=== PATIENT | female | born 1980 | race Caucasian/White ===

== ENCOUNTER → 2017-06-02 15:10 | Outpatient (CLI) | payer MEDICAID, SELFPAY ==
--- NOTE | 2017-06-02 15:14 | RAD_ITS ---
STUDY: X-RAY - RIGHT KNEE REASON FOR EXAM: Twisting ski accident 4 days ago. TECHNIQUE: 4 view(s) of the knee. COMPARISON: None. FINDINGS: Normal visualized distal femur. Normal visualized proximal tibia and fibula. Normal proximal tibiofibular articulation. Normal medial femorotibial compartment. Normal lateral femorotibial compartment. Normal patellofemoral articulation. There is a small joint effusion. RAD/Knee 4 or More Views IMPRESSION: Small joint effusion. Otherwise, unremarkable x-ray examination of the right knee. Electronically Signed: Angelo Mclean MD at 15:40 EST Tel , Service support ,
== END ==
PROVIDERS: Visit Provider Orthopaedic Surgery
DX: M25.561 Pain in right knee (principal); M25.461 Effusion, right knee
CPT/HCPCS: 73564

== ENCOUNTER → 2017-06-02 16:13 | Outpatient (CLI) | payer MEDICAID, SELFPAY ==
--- NOTE | 2017-06-02 16:15 | VDLE_ITS ---
Reason For Study: PAIN RIGHT GSV is normal. CFV is compressible, spontaneous, phasic, competent and demonstrates normal augmentation. FV is compressible, spontaneous, phasic, competent and demonstrates normal augmentation. POP V is compressible, spontaneous, phasic, competent and demonstrates normal augmentation. T/P Trunk is compressible. PTV is compressible. RT PerV is compressible. Procedure Exam performed in department. A preliminary report was called and/or faxed to DR JAVIER. Interpretation Summary Deep veins of the right lower extremity are patent and compressible segmentally. There is no evidence of right lower extremity deep vein thrombosis. Valvular competence appears intact within the proximal deep venous system on the right . The right greater saphenous vein appears patent and compressible segmentally. Ordering Physician: Nikolay Javier Referring Physician: JOHN GRIMES Performed By: Tania Fernandez, ADRIAN, RVT
== END ==
PROVIDERS: Family Provider Student in an Organized Health Care Education/Training Program; PCP Student in an Organized Health Care Education/Training Program; Visit Provider Orthopaedic Surgery
DX: M25.561 Pain in right knee (principal); M25.461 Effusion, right knee
CPT/HCPCS: 73564; 93971

== ENCOUNTER → 2017-06-13 12:34 | Outpatient (CLI) | payer MEDICAID, SELFPAY ==
--- NOTE | 2017-06-13 12:35 | MRI_ITS ---
STUDY: MRI RIGHT KNEE REASON FOR EXAM: Female, 36 years old. Right ACL tear while skiing 2 weeks ago. TECHNIQUE: Standardized fat and water weighted pulse sequences were obtained in all 3 orthogonal planes. COMPARISON: X-ray June 02, 2017 FINDINGS: Normal medial meniscus. Normal hyaline cartilage of the medial femorotibial compartment. Normal medial femoral condyle and tibial plateau. Normal medial collateral ligamentous complex (MCL). Normal distal semimembranosus, gracilis and semitendinosus tendons. Normal lateral meniscus. Normal hyaline cartilage of the lateral femorotibial compartment. Normal lateral femoral condyle. There is bone marrow edema of the posterior lateral tibia consistent with bony contusion. Normal proximal tibiofibular articulation. Normal lateral collateral (fibular) ligament. Normal popliteus tendon. Normal biceps femoris tendon. There is a high-grade partial or complete tear of the anterior cruciate ligament. Normal posterior cruciate ligament (PCL). Normal congruent patellofemoral articulation. Normal hyaline cartilage of the patellofemoral compartment. Normal medial and lateral patellar retinaculum. Normal quadriceps tendon. Normal patellar tendon. Normal Hoffa's fat pad. There is a moderate joint effusion. There is diffuse soft tissue edema. MRI/Lower Ext Joint Only (Routine) IMPRESSION: There is a high-grade partial or complete tear of the anterior cruciate ligament. There is a lateral tibial bony contusion. There is a moderate joint effusion. Electronically Signed: Mikki Benitez MD at 14:08 EST , Service support ,
== END ==
PROVIDERS: Family Provider Student in an Organized Health Care Education/Training Program; PCP Student in an Organized Health Care Education/Training Program; Visit Provider Orthopaedic Surgery
DX: S83.511A Sprain of anterior cruciate ligament of right knee, initial encounter (principal); S80.11XA Contusion of right lower leg, initial encounter; X58.XXXA Exposure to other specified factors, initial encounter
CPT/HCPCS: 73721

== ENCOUNTER 2017-07-03 17:30 | Outpatient (RCR) | payer MEDICAID, SELFPAY ==
--- NOTE | 2017-06-04 12:49 | HP.PTEVAL_ITS ---
Patient's Visit Information Olivia Rosario is a 36 year old F referred to Physical Therapy by DO VEL Barclay with a diagnosis of RIGHT ACL TEAR. Date of Evaluation: 06/04/17 Physical Therapist: Hema Ring PT, - Visit Plan Frequency: 1-2x /Week Duration: 6 Weeks Plan: Patient appears to have tear ACL,thus waiting for MRI .. Intially, patient start with ROM,EDEMA ,VASO,ESTIM,US,CP. GAIT TRAINING - Subjective Subjective: This 36 y/o female presents to physical therapy with right ACL tear.Pateint injuried right knee 05/30/17 sking twisted knee . Patient went ER did x-rays -. Return to [place] seen DR Javier suspects ACL tear ,did x-rays . Patient uses rollator for gait. Patient unbal to squat ,kneel,stairs which patient scoots up on buttuck. Pain in knee affects ability to perform ADL'S and housework tasks. Patient has difficulty sleeping at night . Pain affects affects quality of live. 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 EDEMA: joint line 50 cm ,effusion. PALAPTION: medial/knee tender. GAIT: ambulates with fww decrease stance ,swing phase ..uses rollator at home. BALANCE: good with fww. AROM: 20 -120 supine knee flexion. MMT: quads/hams 3+/5,hip abd 3+/5,hip flexion 4-/5 ankle 4/5. STAIRS:one step at a time with 2 rails - Special Tests R Knee Trixie - Meniscus: Positive R Knee Christopher - ACL: Positive R Knee Anterior Drawer - ACL: Positive R Knee Posterior Drawer - PCL: Negative - Goals Goal 1:: Patient to be Independant with HEP Goal Time Frame: 4-6 Weeks Goal 2:: Patient increase ROM knee 5-120 degrees supine to improve function Goal Time Frame: 4-6 Weeks Goal 3:: Patient to decrease edema knee by 2-5 cm Goal Time Frame: 4-6 Weeks Goal 4:: Patient yo ambulate with least restrictive device community distances Goal Time Frame: 4-6 Weeks - Rehabilitation Potential Physical Therapy Diagnosis: Patient has right ACL tear + lachmans along with pain edema,decrease ROM ,strength,gait and balance thus benifit from MRI, benifit from PT to decrease edema,and increase ROM Rehabilitation Potential: Good - Anticipated Interventions Patient/Client Instruction: Educate patient on: Condition, Plan of Care For the Purpose of:: To decrease pain, To increase ROM, To improve nutrient delivery to tissue, To increase oxygenation perfusion, To improve muscle performance and motor function, To improve ability to perform ADL's, To increase tolerance to activity/condition/position, To improve gait and locomotor functions, To improve health of tissue, To decrease soft tissue restriction, To increase flexibility/ROM, To improve ability to perform tasks related to life management Therapeutic Exercise to Include: Strength training, Flexibilty training, Passive ROM, Active ROM Comment: QUADS/HAMS/HIP For the Purpose of:: To decrease pain, To increase ROM, To improve muscle performance and motor function, To increase tolerance to activity/condition/ position, To improve performance and independence with ADL's, To improve ability of physical actions for home/community/work/leisure, To improve health of tissue, To decrease soft tissue restriction, To increase flexibility/ROM, To improve ability to perform tasks related to life management IF ES: Yes Cryotherapy (ice pack, ice massage): Yes Thermo therapy (hot pack): Yes Ultrasound (thermal/non thermal): Yes For the Purpose of:: To decrease pain, To increase ROM, To improve nutrient delivery to tissue, To increase oxygenation perfusion, To improve health of tissue, To decrease soft tissue restriction, To improve ability to perform tasks related to life management Thank you for the opportunity to evaluate your patient. For Medicare and Medicare HMO plans, please review the plan of care and approve it. It will need to be FAXED BACK to us at [phone] for Medicare purposes. Please let me know if there are questions or concerns regarding this plan of care. Physician Signature: Date:
--- NOTE | 2017-07-03 18:00 | HP.PTDCSUM_ITS ---
HP - PT D/C Summary It has been my pleasure to treat FADI LOTT under orders from Nikolay Javier DO, for the diagnosis of RIGHT ACL TEAR for a total of 7 visit(s). Discharge Date: Please see the following information for a summary of their discharge status. - Subjective Subjective: Doing much better...ready for surgery - Pain Right Knee Pain Intensity (Out of 10): 0 - Overall Improvement % Improvement: 70 - Objective Objective/Function: POSTURE: knee slightly flexed. GAIT: ambulates with slight knee flexed ,stance time and swing phase during gait. AROM: 5-110 degrees. MMT : quads4-/5,hip 4/5,hams 4/5 - Goals Goal 1:: Patient to be Independant with HEP Goal Progress: Goal Met Goal 2:: Patient increase ROM knee 5-120 degrees supine to improve function Goal Progress: Progressing Goal 3:: Patient to decrease edema knee by 2-5 cm Goal Progress: Goal Met Goal 4:: Patient yo ambulate with least restrictive device community distances Goal Progress: Goal Met - Plan Plan: D/C to for ACL surgery - D/C Information If there are questions or concerns regarding this patient's physical therapy, please feel free to call me at [phone]. Thank you for the referral of this patient. Sincerely, Hema Ring PT,
== END 2017-07-03 19:00 | disposition home or self-care (01) ==
LOC: PT 17:30
PROVIDERS: Family Provider Student in an Organized Health Care Education/Training Program; PCP Student in an Organized Health Care Education/Training Program; Visit Provider Orthopaedic Surgery
DX: S83.511D Sprain of anterior cruciate ligament of right knee, subsequent encounter (principal)
CPT/HCPCS: 97014; 97110; 97161; G0283

== ENCOUNTER 2017-07-08 11:53 | Day surgery (SDC) | payer MEDICAID, SELFPAY ==
[2017-07-08 12:29] VITALS: BP 131/68; PULSE 76; RESP 18; TEMP 36.6; O2SAT 100; BMI 43.5
[2017-07-08 12:32] LABS: Internal QC Validated? YES +Cl - CLEAR BKGD; Pregnancy, Urine Negative Negative
--- NOTE | 2017-07-08 13:41 | PCM.DC.ORTHO ---
Discharge Activity: Return to Normal Activity, May not drive while taking narcotic pain medications., May Shower May shower in (days): 2 May resume sexual activity in: 6 weeks Ice area for (Minutes): 20 - Use Polar Care as needed Weight Bearing Status: Partial weight bearing Keep extremity elevated above heart level: Right Leg Additional Activity Instructions:: May perform straight leg raise and quad sets in brace. Then need to 90? 3 times per day. Brace otherwise 24 7 except shower. Call your doctor if your incision/area has: Continuous Slow Oozing, Sudden Increased Bleeding, Increased Pain/ Swelling, Increased Redness, Foul Smelling Discharge, Swelling at the incision site Call your doctor if you observe: Fever of 101 or Higher, Coldness, Increased Pain, Numbness or Tingling, Change in Color, Inability to urinate, Inability to have a bowel movement, Using more than one pad per hour, Shortness of breath, Dizziness, Fainting spells, Swelling in the ankles, Chest pain, Prolonged hiccoughing, Increased palpitations (irregular heartbeat), Calf discomfort, Uncontrolled pain Suture Line Care: Avoid Pulling/Pushing, Avoid Pinching/Bending Change Dressing in (Days):: 2 Remove Dressing in (days):: 2 Cleanse incision/area with: Soap & Water Additional Dressing/Incision Instructions:: Remove dressing on . Do not submerge wound. Wash hands prior to touching wound. Replace dressing with Rayshawn wrap to keep swelling down. Allergies/Adverse Reactions: Allergies penicillin V Allergy (Verified 07/03/17 10:28) Hives Sulfa (Sulfonamide Antibiotics) Allergy (Verified 07/03/17 10:28) throat Medications to take at Discharge ibuprofen 200 mg tablet 200 mg PO PRN PRN 06/25/17 tramadol 50 mg tablet 50 mg PO ONCE 06/25/17 Norethindrone-E.estradiol-Iron [Blisovi 24 Fe Tablet] 1 each PO DAILY 07/03/17 Clindamycin [Cleocin] 300 mg PO BID #20 cap 07/08/17 Docusate Sodium [Colace] 100 mg PO BID PRN PRN #10 cap 07/08/17 Oxycodone HCl/Acetaminophen [Percocet 5/325] 1 - 2 tablet PO Q4H PRN PRN #60 tablet 07/08/17 proMETHazine tablet [Phenergan] 25 mg PO Q4H PRN PRN #10 tab 07/08/17 The following prescriptions were given: Oxycodone HCl/Acetaminophen [Percocet 5/325] 1 - 2 tablet PO Q4H PRN PRN #60 tablet PRN Reason: Pain proMETHazine tablet [Phenergan] 25 mg PO Q4H PRN PRN #10 tab PRN Reason: Nausea Docusate Sodium [Colace] 100 mg PO BID PRN PRN #10 cap PRN Reason: Constipation Clindamycin [Cleocin] 300 mg PO BID #20 cap Primary Care Physician: Josh Cameron DO [Primary Care Provider] - Please Follow Up With: Nikolay Javier DO When: call [facility] for appt for 2 weeks Proposed Discharge Date: 07/08/17
[2017-07-08] MEDS: Clindamycin 900 MG/50 ML BAG 75 MG IV (15:41)
--- NOTE | 2017-07-08 17:05 | PCM.IMDPSTOP ---
Immediate Post-Op Note Date of Procedure: 07/08/17 Primary Surgeon/Physician: Nikolay Javier DO commercial loan analyst: Inés Lopez Pre-Operative Diagnosis: Right knee ACL tear Post-Operative Diagnosis: Same as above Surgery/Procedure Performed:: Right knee ACL reconstruction with allograft-Intrafix. Description of Surgical Findings:: See dictation Estimated Blood Loss: 20 Specimen's removed: None Type of Anesthesia:: General ASA Class: ASA1 Normal Healthy Patient - Admit VTE Documentation VTE Present on Admission: No VTE Mechan Device Prophylaxis: SCD's, Knee High ARCHIE Hose VTE Pharm Prophylaxis ordered?: Yes
--- NOTE | 2017-07-08 17:07 | PCM.OPRPT ---
Report of Operation Date of Procedure: 07/08/17 Pre-Operative Diagnosis: Right knee ACL tear Post-Operative Diagnosis: Same as above Surgery/Procedure Performed:: Right knee ACL reconstruction with allograft-Intrafix. Description of Surgical Findings:: 37-year-old female who sustained a noncontact twisting injury while skiing roughly 2 months ago. Patient had an MRI that showed an ACL disruption but no meniscal pathology. Patient went through physical therapy and made a decision to proceed with ACL reconstruction secondary to continued pain and instability. Patient was subsequently consented for the aforementioned procedure. She is met in the holding area where the right lower extremity was marked and identified by the with surgeon. Patient was taken the operating room in satisfactory condition with somewhat to place to identify patient operative procedure and limb. Patient received 900 clindamycin due to penicillin allergy. She had a well-placed tourniquet to the right proximal thigh. She was then prepped and draped in usual fashion. A 10 mm posterior tibialis allograft with subsequent repair in the back table under sterile conditions and placed in longitudinal traction prior to operative intervention. It measured roughly 10 mm on the femur and 10 mm on the tibia. It was subsequent allowed to continue to moisten again placed on 20 pounds of traction until pulled for insertion. The right lower extremity was elevated Esmarch used for exsanguination and tourniquet was increased to 250 mmHg for roughly 45 minutes. Anterolateral portal was established and we entered in the suprasellar pouch. She had no return of an effusion. Superior lateral outflow portal was established. Diagnostic scope should the patient's patellofemoral joint to be pristine. She had a loose bodies to the posterior lateral corner and the popliteal hiatus was normal. We then moved in the medial compartment. We established anteromedial portal. Anteromedial portal show the medial compartment to be pristine with no meniscal pathology or chondral injury. Central compartment showed an ACL disruption essentially within the mid segment. She had a high-grade partial tear occupying roughly 90% of the ACL diameter. The posterior cruciate ligament was otherwise normal and well synovialized. Patient had a narrow notch. The leg was then placed into figure 4 and lateral compartment evaluated. She had no chondral injury. There was no significant sulcus injury. The menisci was pristine. Popliteal hiatus was normal. At that point time using mechanical shaver and vapor cautery the ACL remnant from the notch was removed to identify the [id number] position. The tibial insertion was maintained to allow for improved graft incorporation. We subsequent performed a notchplasty to allow for better visualization secondary to the patient's narrow notch. We separately introduced a 7 mm femoral offset guide through the a.m. portal. Hyperflexed the knee and passed our guidewire within the anatomic footprint of the ACL. We subsequently used a low-profile reamer 10.5 mm reamer in anticipation of using the femoral Intrafix from [facility]. Excess debris was removed. We maintained roughly 2 mm of back wall. Passing suture was placed. Then turned our attention to the tibia. Tibial guide was set at 50. It was placement and then the tibial anatomic footprint located directly across the anterior horn lateral meniscus and on the downslope of the medial tibial eminence. Guidewire was passed and 10 mm reamer used to create our tunnel. Posterior aspect was chamfered. Passing suture was then brought down through the tibia and the graft brought from the back table. It was then pulled into the femoral socket using standard technique. We simply dilated accordingly and then seated using the Intrafix system using standard technique. The leg was then gently cycled to remove any excess cramp and we showed no signs of any roof impingement. At that point time with the leg in about 5? of knee flexion a guidewire was passed between the anterior and posterior bundles of our graft and subsequent fix using standard technique again using the tibia Intrafix system. Upon completion the patient had trace Lockman. No signs of roof impingement. Her wounds were then copiously irrigated. The tibial incision site was closed with 2-0 Vicryl and then running subicular Monocryl. Portal sites were closed with 3-0 nylon using simple suture technique. She was then dressed in usual fashion with Xeroform 4 x 4's collection Kerlix ABDs and Rasyhawn wrap. Hinged knee brace was placed locked in extension. I was scrubbed and available time during our procedure. We had no drains or complications. Implants included again the femoral and tibia Intrafix from [facility]. Patient will follow the ACL protocol from [facility]. Any major issues please contact me. mortar mixer: Inés Lopez Type of Anesthesia:: General Specimen's removed: None Estimated Blood Loss (mL): 20 Grafts/Implants Used: Intrafix from [facility] - Complications None - Admit VTE Documentation VTE Present on Admission: No VTE Mechan Device Prophylaxis: SCD's, Knee High ARCHIE Hose VTE Pharm Prophylaxis ordered?: Yes
[2017-07-08 17:10] VITALS: BP 131/68; BP 139/89; PULSE 93; RESP 18; TEMP 36.4; O2SAT 98
--- NOTE | 2017-07-08 17:13 | OP.PCM_ITS ---
Report of Operation Date of Procedure: 07/08/17 Pre-Operative Diagnosis: Right knee ACL tear Post-Operative Diagnosis: Same as above Surgery/Procedure Performed:: Right knee ACL reconstruction with allograft- Intrafix. Description of Surgical Findings:: 37-year-old female who sustained a noncontact twisting injury while skiing roughly 2 months ago. Patient had an MRI that showed an ACL disruption but no meniscal pathology. Patient went through physical therapy and made a decision to proceed with ACL reconstruction secondary to continued pain and instability. Patient was subsequently consented for the aforementioned procedure. She is met in the holding area where the right lower extremity was marked and identified by the with surgeon. Patient was taken the operating room in satisfactory condition with somewhat to place to identify patient operative procedure and limb. Patient received 900 clindamycin due to penicillin allergy. She had a well-placed tourniquet to the right proximal thigh. She was then prepped and draped in usual fashion. A 10 mm posterior tibialis allograft with subsequent repair in the back table under sterile conditions and placed in longitudinal traction prior to operative intervention. It measured roughly 10 mm on the femur and 10 mm on the tibia. It was subsequent allowed to continue to moisten again placed on 20 pounds of traction until pulled for insertion. The right lower extremity was elevated Esmarch used for exsanguination and tourniquet was increased to 250 mmHg for roughly 45 minutes. Anterolateral portal was established and we entered in the suprasellar pouch. She had no return of an effusion. Superior lateral outflow portal was established. Diagnostic scope should the patient's patellofemoral joint to be pristine. She had a loose bodies to the posterior lateral corner and the popliteal hiatus was normal. We then moved in the medial compartment. We established anteromedial portal. Anteromedial portal show the medial compartment to be pristine with no meniscal pathology or chondral injury. Central compartment showed an ACL disruption essentially within the mid segment. She had a high-grade partial tear occupying roughly 90% of the ACL diameter. The posterior cruciate ligament was otherwise normal and well synovialized. Patient had a narrow notch. The leg was then placed into figure 4 and lateral compartment evaluated. She had no chondral injury. There was no significant sulcus injury. The menisci was pristine. Popliteal hiatus was normal. At that point time using mechanical shaver and vapor cautery the ACL remnant from the notch was removed to identify the [id number] position. The tibial insertion was maintained to allow for improved graft incorporation. We subsequent performed a notchplasty to allow for better visualization secondary to the patient's narrow notch. We separately introduced a 7 mm femoral offset guide through the a.m. portal. Hyperflexed the knee and passed our guidewire within the anatomic footprint of the ACL. We subsequently used a low-profile reamer 10.5 mm reamer in anticipation of using the femoral Intrafix from [facility]. Excess debris was removed. We maintained roughly 2 mm of back wall. Passing suture was placed. Then turned our attention to the tibia. Tibial guide was set at 50. It was placement and then the tibial anatomic footprint located directly across the anterior horn lateral meniscus and on the downslope of the medial tibial eminence. Guidewire was passed and 10 mm reamer used to create our tunnel. Posterior aspect was chamfered. Passing suture was then brought down through the tibia and the graft brought from the back table. It was then pulled into the femoral socket using standard technique. We simply dilated accordingly and then seated using the Intrafix system using standard technique. The leg was then gently cycled to remove any excess cramp and we showed no signs of any roof impingement. At that point time with the leg in about 5? of knee flexion a guidewire was passed between the anterior and posterior bundles of our graft and subsequent fix using standard technique again using the tibia Intrafix system. Upon completion the patient had trace Lockman. No signs of roof impingement. Her wounds were then copiously irrigated. The tibial incision site was closed with 2-0 Vicryl and then running subicular Monocryl. Portal sites were closed with 3-0 nylon using simple suture technique. She was then dressed in usual fashion with Xeroform 4 x 4's collection Kerlix ABDs and Rayshawn wrap. Hinged knee brace was placed locked in extension. I was scrubbed and available time during our procedure. We had no drains or complications. Implants included again the femoral and tibia Intrafix from [facility]. Patient will follow the ACL protocol from [facility]. Any major issues please contact me. 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
[2017-07-08 17:15] VITALS: BP 131/68; BP 160/76; PULSE 76; RESP 18; O2SAT 94
[2017-07-08] MEDS: Ketorolac 15 MG/ML Vial IV (17:18)
--- NOTE | 2017-07-08 17:28 | RAD_ITS ---
STUDY: X-RAY - RIGHT KNEE REASON FOR EXAM: Female, 37 years old. Postop TECHNIQUE: 2 view(s) of the knee. COMPARISON: None. FINDINGS: Interval ACL repair surgery since the previous study.. Subcutaneous soft tissue gas is noted within the distal half of the right thigh.. RAD/Knee 1 or 2 Views IMPRESSION: Postoperative changes of the knee. Electronically Signed: Js Barreto DO at 18:09 EDT Tel [phone], Service support ,
[2017-07-08 17:30] VITALS: BP 131/66; BP 131/68; PULSE 80; RESP 18; O2SAT 93
[2017-07-08 17:45] VITALS: BP 118/56; BP 131/68; PULSE 92; RESP 18; TEMP 36.4; O2SAT 94
[2017-07-08 19:27] VITALS: BP 131/68
== END 2017-07-08 19:25 | disposition home or self-care (01) ==
LOC: SDC 11:54 → AC 11:55
PROVIDERS: Anesthesiology; Family Provider Student in an Organized Health Care Education/Training Program; PCP Student in an Organized Health Care Education/Training Program; Visit Provider Orthopaedic Surgery
PROC: (CPT 29888; principal; 2017-07-08 13:50)
DX: S83.511A Sprain of anterior cruciate ligament of right knee, initial encounter (principal); X50.1XXA Overexertion from prolonged static or awkward postures, initial encounter; Y93.23 Activity, snow (alpine) (downhill) skiing, snowboarding, sledding, tobogganing and snow tubing; Y92.9 Unspecified place or not applicable; Z86.79 Personal history of other diseases of the circulatory system; Z87.891 Personal history of nicotine dependence
CPT/HCPCS: 29888; 64447; 73560; 81025; J7120; J2405

== ENCOUNTER → 2017-09-29 15:10 | Outpatient (CLI) | payer OTHER, SELFPAY ==
--- NOTE | 2017-09-29 15:13 | VDLE_ITS ---
Reason For Study: RLE PAIN RIGHT GSV is normal. CFV is compressible, spontaneous, phasic, competent and demonstrates normal augmentation. FV is compressible, spontaneous, phasic, competent and demonstrates normal augmentation. POP V is compressible, spontaneous, phasic, competent and demonstrates normal augmentation. T/P Trunk is compressible. PTV is compressible. RT PerV is compressible. Procedure Exam performed in department. The exam was diagnostic. A preliminary report was called and/or faxed to DR. JAVIER @ 3:32 PM @ [phone]. Interpretation Summary There is no evidence of right lower extremity deep vein thrombosis. Right greater saphenous vein appears patent and compressible segmentally. Ordering Physician: Nikolay Javier Referring Physician: Nikolay Javier Performed By: Marbella Andersen, RDCS, RVT
== END ==
PROVIDERS: Family Provider Student in an Organized Health Care Education/Training Program; PCP Student in an Organized Health Care Education/Training Program; Visit Provider Orthopaedic Surgery
DX: M79.661 Pain in right lower leg (principal)
CPT/HCPCS: 93971

== ENCOUNTER → 2017-10-16 11:47 | Outpatient (CLI) | payer OTHER, SELFPAY ==
[2017-10-20 10:23] LABS: H. PYLORI STOOL AG Negative (Negative)
== END ==
PROVIDERS: Family Provider Student in an Organized Health Care Education/Training Program; PCP Student in an Organized Health Care Education/Training Program; Visit Provider Nurse Practitioner Adult Health
DX: A04.8 Other specified bacterial intestinal infections (principal)

== ENCOUNTER → 2017-10-31 12:27 | Outpatient (CLI) | payer OTHER, SELFPAY | PROVIDERS: Family Provider Student in an Organized Health Care Education/Training Program; PCP Student in an Organized Health Care Education/Training Program; Visit Provider Student in an Organized Health Care Education/Training Program | DX: Z79.899 Other long term (current) drug therapy (principal) | CPT/HCPCS: 36415; 83036 ==

== ENCOUNTER 2017-11-10 13:00 | Outpatient (RCR) | payer MEDICAID, OTHER, SELFPAY ==
--- NOTE | 2017-07-31 11:33 | HP.PTEVAL ---
Patient's Visit Information FADI LOTT is a 37 year old F referred to Physical Therapy by Nikolay Javier DO with a diagnosis of Right ACL- July 08 2017. Date of Evaluation: 07/31/17 Physical Therapist: Ludivina Gibson - Visit Plan Frequency: 2x /Week Duration: 4 Weeks Plan: Follow ACL protocol- follow up when able to fully WB - Subjective Subjective: Patient reports that she tore ACL skiing- made a turn/cut and wasn't going superfast- and had a fall. [employer] in [facility] in [place]. Took her to the clinic- took x-rays the next day at ER-did not do anything for her. w/c on the way home then switched to a walker. Saw Dr. Javier when she got back- had an MRI done and saw torn ACL and you had surgery July 08, 2017. Has done quad sets, heel slides and 90 sitting for ROM at home. Was doing well with SLR and now she can't do it again. Saw Dr. Javier on the and he recommended PT. Goes back to him on . PWB until then. Does not work outside of her home- has kids 10 to 16 years old 5 kids. 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 Pain at its worst: 4/10 Agg: overdoing her exercises, being up on it for long periods of time. Stiffness Eases: elevate, ice and taking the brace off and moving it, medication. Best: 0/10. Pain is located in the incision and along the medial side of the knee. Radiates soreness in the hip and ankle- but the biggest concern is a cramp on fri/ and then had swelling/soreness/redness on the heel of her foot. Rested it and now its gone. Describes pain as dull/achy/sharp/shooting. Mostly dull and achy. Sleep: disturbed- normally a side and belly sleeper. Currently sleeping on her back. PMHx: none Meds: visolvi ( control). Daily life is busy but she wants to be able to get back to all her normal stuff- does not workout or go to the gym. - Objective Posture: FH, RS. Gait: PWB with rollater-TROM brace on the right LE locked in extn. Girth: Patella: 49.5 cm 6 below: 43.5 cm 6 above:65.5 cm. ROM: 0-70 degrees with pain and stiffness at end range flexion. Strength: quad set visible, SLR with light touch from therapist. Ankle: 5/5, Hip: 4/5 throughout Core: poor - Goals Goal 1:: Patient will be I with HEP Goal Time Frame: 4-6 Weeks Goal 2:: Patient will demo 0-125 degrees in the right knee Goal Time Frame: 4-6 Weeks Goal 3:: Patient will demo equal girth bilaterally 6 above patella Goal Time Frame: 4-6 Weeks Goal 4:: Patient will ambulate >300 feet normal gait pattern Goal Time Frame: 4-6 Weeks Goal 5:: Patient will asc/desc 8 stairs recip Goal Time Frame: 4-6 Weeks - Rehabilitation Potential Physical Therapy Diagnosis: Patient presents with hypomobility- she has decreased ROM, strength and muscular endurance s/p ACL surgical intervention leading to abnormal gait and decreased ADL's. Rehabilitation Potential: Good - Anticipated Interventions Patient/Client Instruction: Educate patient on: Benefits of Fitness Program For the Purpose of:: To improve ability to perform ADL's Therapeutic Exercise to Include: Strength training, Endurance training, Balance training, Agility training, Body mechanics, Postural training, Flexibilty training, Gait and locomotor training, Passive ROM, Active ROM, Dynamic Lumbar Stabilization, Scapular Strength/Stabilization For the Purpose of:: To improve muscle performance and motor function TENS: Yes Cryotherapy (ice pack, ice massage): Yes Thermo therapy (hot pack): Yes Ultrasound (thermal/non thermal): Yes For the Purpose of:: To decrease pain Thank you for the opportunity to evaluate your patient. For Medicare and Medicare HMO plans, please review the plan of care and approve it. It will need to be FAXED BACK to us at [phone] for Medicare purposes. Please let me know if there are questions or concerns regarding this plan of care. Physician Signature: Date:
--- NOTE | 2017-09-11 14:37 | HP.PTREVAL_ITS ---
Nikolay Javier, DO, It has been my pleasure to treat FADI LOTT over the last 9 visits for Right ACL- July 08 2017. Please see the progress note below for an update on the physical therapy plan of care! Subjective: Patient reports that now she has a peptic ulcer and can't take meds - she was put on an antibiotic which is wrecking her. She feels likes the knee is still swollen but she was able to get to 110 degrees with help last visit. Has added leash stretch at home to improve ROM. Just stopped using the crutch this week- she doesn't use it unless he is up at night. Patient feels that she is 50%. She is able to do a lot of stuff but she is not back to everything like ambulating normally and ROM. Goes back September 29, [address] Javier. Pain in the knee ranges from 0-6/10. But always has stiffness. Does not feel like its going to buckle. Objective/Function: Posture: FH, RS. Gait: antalgic-no AD and is FWB- she has decreased stance on right LE with poor heel/toe pattern Girth: 6 above:68 cm. ROM: 0-110 degrees with pain and stiffness at end range flexion. Strength : left flexion:59/61/59 right flexion: 51,51,49 Left extn: 96, 101, 94 Right extn: 60,64,63. Stairs: recip with 1 HR mild deviation with desc Plan Plan: Cont 2x a week for 4 weeks- Push ROM Goals Goal 1:: Patient will be I with HEP Goal Time Frame: 4-6 Weeks Goal Progress: Progressing Goal 2:: Patient will demo 0-125 degrees in the right knee Goal Time Frame: 4-6 Weeks Goal Progress: Progressing Goal 3:: Patient will demo equal girth bilaterally 6 above patella Goal Time Frame: 4-6 Weeks Goal Progress: Progressing Goal 4:: Patient will ambulate >300 feet normal gait pattern Goal Time Frame: 4-6 Weeks Goal Progress: Progressing Goal 5:: Patient will asc/desc 8 stairs recip Goal Time Frame: 4-6 Weeks Anticipated Interventions Patient/Client Instruction: Educate patient on: Benefits of Fitness Program For the Purpose of:: To improve ability to perform ADL's Therapeutic Exercise to Include: Strength training, Endurance training, Balance training, Agility training, Body mechanics, Postural training, Flexibilty training, Gait and locomotor training, Passive ROM, Active ROM, Dynamic Lumbar Stabilization, Scapular Strength/Stabilization For the Purpose of:: To improve muscle performance and motor function TENS: Yes Cryotherapy (ice pack, ice massage): Yes Thermo therapy (hot pack): Yes Ultrasound (thermal/non thermal): Yes For the Purpose of:: To decrease pain Please do not hesitate to contact me at [phone] by phone or Fax: if you have questions or concerns regarding this new plan of care! Sincerely, Ludivina Gibson
--- NOTE | 2017-10-09 15:22 | HP.PTREVAL_ITS ---
Nikolay Javier DO, It has been my pleasure to treat FADI LOTT over the last 13 visits for Right ACL- July 08 2017. Please see the progress note below for an update on the physical therapy plan of care! Subjective: Calf strain that happened a few weeks ago- had DVT test which was negative. Was told to wear ARCHIE hose and take a week of rest. Still feels the swelling is limiting her ROM. She had increased soreness and sporatic bruising at the incision site. Has been driving a lot in the past few days and its been stiff. Pain comes and goes. Would like to continue therapy but maybe do a 1x a week and do more on her own- bike, swimming, walking etc... Objective/Function: Posture: FH, RS. Gait: antalgic-no AD and is FWB- she has decreased stance on right LE with poor heel/toe pattern ROM: 0-110 degrees, Strength: Extn: 4+/5, flexion: 4+/5 Hip: 4+/5 Stairs: recip with 1 HR mild deviation with desc Plan Plan: Continue 1x a week Goals Goal 1:: Patient will be I with HEP Goal Time Frame: 4-6 Weeks Goal Progress: Progressing Goal 2:: Patient will demo 0-125 degrees in the right knee Goal Time Frame: 4-6 Weeks Goal Progress: Progressing Goal 3:: Patient will demo equal girth bilaterally 6 above patella Goal Time Frame: 4-6 Weeks Goal Progress: Progressing Goal 4:: Patient will ambulate >300 feet normal gait pattern Goal Time Frame: 4-6 Weeks Goal Progress: Progressing Goal 5:: Patient will asc/desc 8 stairs recip Goal Time Frame: 4-6 Weeks Anticipated Interventions Patient/Client Instruction: Educate patient on: Benefits of Fitness Program For the Purpose of:: To improve ability to perform ADL's Therapeutic Exercise to Include: Strength training, Endurance training, Balance training, Agility training, Body mechanics, Postural training, Flexibilty training, Gait and locomotor training, Passive ROM, Active ROM, Dynamic Lumbar Stabilization, Scapular Strength/Stabilization For the Purpose of:: To improve muscle performance and motor function TENS: Yes Cryotherapy (ice pack, ice massage): Yes Thermo therapy (hot pack): Yes Ultrasound (thermal/non thermal): Yes For the Purpose of:: To decrease pain Please do not hesitate to contact me at [phone] by phone or Fax: if you have questions or concerns regarding this new plan of care! Sincerely, Ludivina Gibson
--- NOTE | 2017-11-10 13:22 | HP.PTDCSUM_ITS ---
HP - PT D/C Summary It has been my pleasure to treat FADI LOTT under orders from Nikolay Javier DO, for the diagnosis of Right ACL- July 08 2017 for a total of 15 visit(s). Discharge Date: Please see the following information for a summary of their discharge status. - Subjective Subjective: Patient reports that she is better- in the last 2-3 weeks she felt like she is walking more normal but there is still times that she had some weird rubbing- still has clicking and popping with extension. She still has swelling callie by the end of the day. Has been working out a lot in the pool. - Pain Right knee Pain Intensity (Out of 10): 2 Right calf Pain Intensity (Out of 10): 0 - Overall Improvement % Improvement: 70 - Objective Objective/Function: Posture: FH, RS. Gait: slightly antalgic-no AD and is FWB- she has decreased stance on right LE with decreased heel/toe pattern ROM: 0- 110 degrees, Strength: Extn: 5/5, flexion: 5/5 Hip: 5/5 Stairs: recip with 1 HR mild deviation with desc - Goals Goal 1:: Patient will be I with HEP Goal Progress: Goal Met Goal 2:: Patient will demo 0-125 degrees in the right knee Goal Progress: Progressing Goal 3:: Patient will demo equal girth bilaterally 6 above patella Goal Progress: Progressing Goal 4:: Patient will ambulate >300 feet normal gait pattern Goal Progress: Progressing Goal 5:: Patient will asc/desc 8 stairs recip - Plan Plan: Discharge to I HEP. - D/C Information If there are questions or concerns regarding this patient's physical therapy, please feel free to call me at [phone]. Thank you for the referral of this patient. Sincerely, Ludivina Gibson
== END 2017-11-10 19:00 | disposition home or self-care (01) ==
LOC: PT 13:00
PROVIDERS: Family Provider Student in an Organized Health Care Education/Training Program; PCP Student in an Organized Health Care Education/Training Program; Visit Provider Orthopaedic Surgery
DX: Z98.890 Other specified postprocedural states (principal)
CPT/HCPCS: 97110; 97162; 97164; 97530

== ENCOUNTER → 2018-07-16 13:47 | Outpatient (CLI) | payer MEDICAID, SELFPAY ==
--- NOTE | 2018-07-16 13:48 | RAD_ITS ---
STUDY: X-RAY - RIGHT KNEE REASON FOR EXAM: Pain. TECHNIQUE: 4 view(s) of the knee. COMPARISON: Radiographs 07/08/2017 and 06/02/2017. FINDINGS: There are postoperative changes of the distal femur and proximal tibia from anterior cruciate ligament reconstruction. Normal proximal tibiofibular articulation. Normal medial femorotibial compartment. Normal lateral femorotibial compartment. There is interval development of joint space narrowing of the lateral aspect of the patellofemoral articulation. The soft tissue structures are unremarkable. RAD/Knee 4 or More Views IMPRESSION: Interval development of joint space of the patellofemoral articulation. Postoperative changes from anterior cruciate ligament reconstruction. Electronically Signed: Angelo Mclean MD at 15:07 EDT Tel , Service support ,
== END ==
PROVIDERS: Family Provider Student in an Organized Health Care Education/Training Program; PCP Student in an Organized Health Care Education/Training Program; Referring Provider Orthopaedic Surgery; Visit Provider Orthopaedic Surgery
DX: M25.561 Pain in right knee (principal)
CPT/HCPCS: 73564

== ENCOUNTER → 2018-11-04 10:56 | Outpatient (CLI) | payer MEDICAID, SELFPAY ==
--- NOTE | 2018-11-04 10:57 | MRI_ITS ---
STUDY: MRI RIGHT KNEE REASON FOR EXAM: Mechanical right knee pain, swelling, ACL repair in June 2017. TECHNIQUE: Standardized fat and water weighted pulse sequences were obtained in all 3 orthogonal planes. COMPARISON: MRI images 06/13/2017 and radiographs 07/16/2018. FINDINGS: Normal medial meniscus. Normal hyaline cartilage of the medial femorotibial compartment. Normal medial femoral condyle and tibial plateau. Normal medial collateral ligamentous complex (MCL). Normal distal semimembranosus, gracilis and semitendinosus tendons. Normal lateral meniscus. Normal hyaline cartilage of the lateral femorotibial compartment. Normal lateral femoral condyle and tibial plateau. Normal proximal tibiofibular articulation. Normal lateral collateral (fibular) ligament. Normal popliteus tendon. Normal biceps femoris tendon. The anterior cruciate ligament graft is intact (series 7 image 10). Normal posterior cruciate ligament (PCL). Normal congruent patellofemoral articulation. Normal hyaline cartilage of the patellofemoral compartment. Normal medial and lateral patellar retinaculum. Normal quadriceps tendon. Normal patellar tendon. There is postoperative scarring in Hoffa's fat pad. There is no joint effusion. There is a thin medial patellar plica. The soft tissues are unremarkable. There is postoperative changes of the distal femur and proximal tibia anterior cruciate ligament reconstruction. MRI/Lower Ext Joint Only (Routine) IMPRESSION: Intact anterior cruciate graft. No demonstrated meniscal tear. Electronically Signed: Angelo Mclean MD at 12:51 EDT Tel , Service support ,
== END ==
PROVIDERS: Family Provider Student in an Organized Health Care Education/Training Program; PCP Student in an Organized Health Care Education/Training Program; Referring Provider Orthopaedic Surgery; Visit Provider Orthopaedic Surgery
DX: M25.561 Pain in right knee (principal); M25.661 Stiffness of right knee, not elsewhere classified
CPT/HCPCS: 73721

== ENCOUNTER 2018-11-06 10:04 | Outpatient (RCR) | payer MEDICAID, SELFPAY | END 2018-11-11 23:59 | LOC: NS 10:04 | PROVIDERS: Family Provider Student in an Organized Health Care Education/Training Program; PCP Student in an Organized Health Care Education/Training Program; Visit Provider Student in an Organized Health Care Education/Training Program | DX: E66.01 Morbid (severe) obesity due to excess calories (principal); Z68.43 Body mass index [BMI] 50.0-59.9, adult; Z71.3 Dietary counseling and surveillance | CPT/HCPCS: 97802 ==

== ENCOUNTER → 2018-11-19 09:27 | Outpatient (CLI) | payer MEDICAID, SELFPAY ==
--- NOTE | 2018-11-19 09:29 | VDLE_ITS ---
Reason For Study: Swelling RIGHT GSV is normal. CFV is compressible, spontaneous, phasic, competent and demonstrates normal augmentation. FV is compressible, spontaneous, phasic, competent and demonstrates normal augmentation. POP V is compressible, spontaneous, phasic, competent and demonstrates normal augmentation. T/P Trunk is compressible. PTV is compressible. RT PerV is compressible. Procedure Exam performed in department. A preliminary report was called and/or faxed to [facility]. Interpretation Summary There is no evidence of right lower extremity deep vein thrombosis. Right great saphenous vein appears patent and compressible segmentally. Ordering Physician: Shari Craig Referring Physician: Josh Marie Performed By: Michelle Briceño RVT
== END ==
PROVIDERS: Family Provider Student in an Organized Health Care Education/Training Program; PCP Student in an Organized Health Care Education/Training Program; Referring Provider Orthopaedic Surgery; Visit Provider Orthopaedic Surgery
DX: M79.89 Other specified soft tissue disorders (principal)
CPT/HCPCS: 93971

== ENCOUNTER 2018-12-04 11:30 | Outpatient (RCR) | payer MEDICAID, SELFPAY | END 2018-12-12 23:59 | LOC: NS 11:30 | PROVIDERS: Family Provider Student in an Organized Health Care Education/Training Program; PCP Student in an Organized Health Care Education/Training Program; Visit Provider Student in an Organized Health Care Education/Training Program | DX: E66.01 Morbid (severe) obesity due to excess calories (principal); Z68.43 Body mass index [BMI] 50.0-59.9, adult; Z71.3 Dietary counseling and surveillance | CPT/HCPCS: 97803 ==

== ENCOUNTER 2018-12-25 10:00 | Outpatient (RCR) | payer MEDICAID, SELFPAY | END 2019-01-11 23:59 | LOC: NS 10:00 | PROVIDERS: Family Provider Student in an Organized Health Care Education/Training Program; PCP Student in an Organized Health Care Education/Training Program; Visit Provider Student in an Organized Health Care Education/Training Program | DX: E66.01 Morbid (severe) obesity due to excess calories (principal); Z68.43 Body mass index [BMI] 50.0-59.9, adult; Z71.3 Dietary counseling and surveillance | CPT/HCPCS: 97803 ==

== ENCOUNTER 2019-02-05 10:00 | Outpatient (RCR) | payer MEDICAID, SELFPAY | END 2019-02-11 23:59 | LOC: NS 10:00 | PROVIDERS: Family Provider Student in an Organized Health Care Education/Training Program; PCP Student in an Organized Health Care Education/Training Program; Visit Provider Student in an Organized Health Care Education/Training Program | DX: E66.01 Morbid (severe) obesity due to excess calories (principal); Z68.43 Body mass index [BMI] 50.0-59.9, adult; Z71.3 Dietary counseling and surveillance | CPT/HCPCS: 97803 ==

== ENCOUNTER 2019-03-05 10:00 | Outpatient (RCR) | payer MEDICAID, SELFPAY | END 2019-03-13 23:59 | LOC: NS 10:00 | PROVIDERS: Family Provider Student in an Organized Health Care Education/Training Program; PCP Student in an Organized Health Care Education/Training Program; Visit Provider Student in an Organized Health Care Education/Training Program | DX: Z71.3 Dietary counseling and surveillance (principal); E66.01 Morbid (severe) obesity due to excess calories; Z68.43 Body mass index [BMI] 50.0-59.9, adult | CPT/HCPCS: 97803 ==

== ENCOUNTER → 2019-09-22 09:29 | Outpatient (CLI) | payer MEDICAID, SELFPAY ==
[2019-09-22 10:18] LABS: Absolute Lymphocyte Count 2.84 X10^3/uL (0.83-4.51); Absolute Neutrophil Count 5.4 X10^3/uL (2.0-7.7); Basophil# 0.07 X10^3/uL; Basophil% 0.8 % (0-1); Eosinophil# 0.19 X10^3/uL; Hematocrit 40.6 % (37-47); Hemoglobin 13.4 g/dL (12.0-15.0); Lymphocyte # 2.84 X10^3/ul (4.0); Lymphocyte % 30.5 % (19-41); Mean Corpuscular Hgb 30.7 pg (27.0-32.0); Mean Corpuscular Volume 93.1 fL (81-99); Mean Platelet Vol. 12.6 fl (6.2-12.0); Monocyte# 0.77 X10^3/uL; Monocyte% 8.3 % (0-10); NRBC Flagged by Analyzer 0 % (0-5); Platelet Count 257 K/mm3 (150-450); RBC Distribution Width CV 12.9 % (11.6-14.6); RBC Distribution Width SD 43.8 fl (35.1-43.9); Red Blood Count 4.36 M/mm3 (4.2-5.4); White Blood Count 9.3 K/mm3 (4.4-11.0)
[2019-09-22 10:57] LABS: ALB/GLOB Ratio 1.1 RATIO (0.9-2.4); AST(SGOT) 20 U/L (15-37); Alanine Aminotransfer ALT/SGPT 34 U/L (13-56); Alkaline Phosphatase 56 U/L (45-117); Anion Gap 9 (5-15); BUN 17 mg/dL (7-18); BUN/Creat Ratio 22.5 RATIO (10-20); Calcium,Total 8.8 mg/dL (8.5-10.1); Chloride 104 mmol/L (98-107); Creatinine, Serum 0.75 mg/dL (0.55-1.02); EST Glomerular Filtration Rate 91 mL/min (>60); Est Glom Filt Rate - Afr Amer 110 mL/min (>60); Free T3 2.6 pg/mL (2.18-3.98); Globulin 3.5 g/dL (2.2-4.2); Glucose 81 mg/dL (74-106); Potassium 3.9 mmol/L (3.5-5.1); Protein, Total 7.5 g/dL (6.4-8.2); Sodium Level 140 mmol/L (136-145); T4 Free Direct 0.92 ng/dL (0.76-1.46); Thyroid Stim Hormone (TSH) 6.23 uIU/mL (0.358-3.74)
[2019-09-22 11:55] LABS: Hemoglobin A1c 5.3 % (3.8-5.6)
[2019-09-23 06:35] LABS: Thyroid Peroxidase AB < 9 IU/mL (0-34)
== END ==
PROVIDERS: PCP Student in an Organized Health Care Education/Training Program; Referring Provider Student in an Organized Health Care Education/Training Program; Visit Provider Student in an Organized Health Care Education/Training Program
DX: R42 Dizziness and giddiness (principal); R94.6 Abnormal results of thyroid function studies
CPT/HCPCS: 36415; 80053; 83036; 84439; 84443; 84481; 85025; 86376

== ENCOUNTER → 2019-10-07 10:14 | Outpatient (CLI) | payer OTHER, SELFPAY ==
--- NOTE | 2019-10-07 10:45 | MRI_ITS ---
STUDY: MRI BRAIN WITH AND WITHOUT CONTRAST (ATTENTION INTERNAL AUDITORY CANALS - I.A.C.''s) REASON FOR EXAM: Female, 39 years old. Dizziness, tinnitus, rt ear pain TECHNIQUE: Standardized multiplanar fat and water weighted pulse sequences were obtained. IV Dotarem 19ml was administered for the contrast portion of the examination. COMPARISON: None. FINDINGS: Normal bilateral temporal bones. Normal bilateral internal auditory canals. There is no demonstrated intracanalicular or cisternal vestibular schwannoma (acoustic neuroma). There is no enhancement of the bilateral VIIth or VIIIth cranial nerves. Normal bilateral cochlea, vestibules and semicircular canals. Normal size of the ventricles and extra-axial spaces for the patient''s age. Normal white matter tracts of the supratentorial brain. Normal bilateral basal ganglia. Normal thalami. Normal flow voids within the major intracranial circulation suggesting patency by spin echo criteria. Normal venous enhancement. There is no enhancing intra-axial or extra-axial abnormality. There is no extra-axial fluid accumulation. Normal sella turcica, pituitary gland, infundibular stalk, optic chiasm and hypothalamus. Normal tectal plate and pineal gland. Normal midbrain, juvenal and medulla. Normal cerebellum. Normal basal cisterns. No demonstrated orbital abnormality, within the constraints of a routine brain study. Normal visualized paranasal sinuses. Normal calvarium and skull base. Normal visualized soft tissue structures. Normal visualized upper cervical spine. MRI/Brain W/WO Contrast IMPRESSION: Unremarkable unenhanced and enhanced MRI of the bilateral internal auditory canals (I.A.C''s). Electronically Signed: Christiano Mays MD at 11:03 EDT Tel , Service support ,
== END ==
PROVIDERS: PCP Student in an Organized Health Care Education/Training Program; Referring Provider Otolaryngology; Visit Provider Otolaryngology
DX: R42 Dizziness and giddiness (principal); E03.9 Hypothyroidism, unspecified
CPT/HCPCS: 70553; A9575

== ENCOUNTER → 2019-12-01 09:14 | Outpatient (CLI) | payer OTHER, SELFPAY ==
[2019-12-01 10:32] LABS: Free T3 2.3 pg/mL (2.18-3.98); T4 Free Direct 0.99 ng/dL (0.76-1.46); Thyroid Stim Hormone (TSH) 2.32 uIU/mL (0.358-3.74)
== END ==
PROVIDERS: PCP Student in an Organized Health Care Education/Training Program; Referring Provider Student in an Organized Health Care Education/Training Program; Visit Provider Student in an Organized Health Care Education/Training Program
DX: R79.89 Other specified abnormal findings of blood chemistry (principal); R42 Dizziness and giddiness; E03.9 Hypothyroidism, unspecified; Z13.1 Encounter for screening for diabetes mellitus
CPT/HCPCS: 36415; 84439; 84443; 84481

== ENCOUNTER 2020-06-30 09:38 | Outpatient (RCR) | payer OTHER, SELFPAY ==
[2020-06-30] MEDS: COVID-19 VACC, MRNA(PFIZER)/PF 30 MCG/0.3 ML SYRINGE IM (08:21)
[2020-07-21] MEDS: COVID-19 VACC, MRNA(PFIZER)/PF 30 MCG/0.3 ML SYRINGE IM (08:00)
== END 2020-06-30 23:59 ==
LOC: IMMUN 09:38
PROVIDERS: PCP Student in an Organized Health Care Education/Training Program; Visit Provider Family Medicine
DX: Z23 Encounter for immunization (principal)
CPT/HCPCS: 0001A; 0002A; 91300

== ENCOUNTER → 2020-09-22 14:28 | Outpatient (CLI) | payer OTHER, SELFPAY ==
--- NOTE | 2020-09-22 14:31 | US_ITS ---
STUDY: ULTRASOUND BREAST - LEFT REASON FOR EXAM: Female, 40 years old. Palpable lump left breast. TECHNIQUE: Axial and longitudinal images of the LEFT breast were performed with a high resolution ultrasound transducer. # OF IMAGES: 22 COMPARISON: Comparison is made with prior mammogram done earlier today. FINDINGS: LEFT Breast: The palpable abnormality corresponds to a superficial 6 mm x 4 mm x 2 mm hypoechoic nodule in the subcutaneous tissues at the 3 o''clock position of the breast at 15 cm from nipple. This most likely represents a sebaceous cyst. US/Breast Limited Unilateral IMPRESSION: The palpable amount corresponds to a superficial 6 mm x 4 mm x 2 mm hypoechoic nodule in the subcutaneous tissues. This most likely represents a sebaceous cyst. ASSESSMENT CATEGORY: BIRADS Category 2: Benign. A letter regarding these results will be sent to the patient by the facility within 30 days. Electronically Signed: Jose R Fraga MD at 8:52 EDT , Service support ,
--- NOTE | 2020-09-22 14:31 | BI_ITS ---
MAMMOGRAPHY - BILATERAL DIAGNOSTIC REASON FOR EXAM: Female, 40 years old. Small lump at the 3 o''clock position of the left breast just deep to the skin surface. PERTINENT HISTORY: Mother with breast cancer. TECHNIQUE: Digital bilateral breast verna (3D mammographic acquisition) in the CC and MLO projections. 2-D mediolateral oblique (MLO) and craniocaudad (CC) views of both breasts were obtained. CAD: Full Field Digital Mammography with Computer Added Detection was performed. COMPARISON: None. Baseline examination. FINDINGS: Breast Composition: The breasts are almost entirely fatty. There are no dominant masses or suspicious calcifications. No other significant abnormalities are identified. BI/DIAG MAMM W/CAD, BILAT IMPRESSION: Negative diagnostic mammogram. With the patient''s history of a palpable lump in the left breast, correlation with ultrasound is recommended. ASSESSMENT CATEGORY: BIRADS Category 0: Incomplete. Need additional imaging evaluation. A letter regarding these results will be sent to the patient by the facility within 30 days. Approximately 10% of breast cancers are not detected by mammography. A normal mammogram should not delay biopsy of a clinically suspicious abnormality. Electronically Signed: Jose R Fraga MD at 15:35 EDT , Service support ,
== END ==
PROVIDERS: PCP Student in an Organized Health Care Education/Training Program; Referring Provider Obstetrics & Gynecology Obstetrics; Visit Provider Obstetrics & Gynecology Obstetrics
DX: N63.20 Unspecified lump in the left breast, unspecified quadrant (principal)
CPT/HCPCS: 76642; 77062; 77063; 77066; G0279

== ENCOUNTER → 2021-03-13 15:40 | Outpatient (CLI) | payer OTHER, SELFPAY ==
[2021-03-13 16:28] LABS: International Normalized Ratio 1.1; Prothrombin Time (Protime)PT. 13.3 SECONDS (11.7-14.9)
== END ==
PROVIDERS: PCP Internal Medicine
DX: H93.A9 Pulsatile tinnitus, unspecified ear (principal)
CPT/HCPCS: 36415; 85610; 85730

== ENCOUNTER → 2021-04-09 14:15 | Outpatient (CLI) | payer OTHER, SELFPAY ==
[2021-04-09 15:32] LABS: Hemoglobin A1c 5.2 % (3.8-5.6)
[2021-04-09 15:35] LABS: ALB/GLOB Ratio 1.1 RATIO (0.9-2.4); AST(SGOT) 16 U/L (15-37); Alanine Aminotransfer ALT/SGPT 30 U/L (13-56); Albumin, Serum 3.9 g/dL (3.2-5.0); Alkaline Phosphatase 57 U/L (45-117); Anion Gap 6 (5-15); BUN 14 mg/dL (7-18); Calcium,Total 8.8 mg/dL (8.5-10.1); Chloride 107 mmol/L (98-107); Cholesterol 171 mg/dL (200); Creatinine, Serum 0.74 mg/dL (0.55-1.02); EST Glomerular Filtration Rate 92 mL/min (>60); Est Glom Filt Rate - Afr Amer 112 mL/min (>60); Globulin 3.6 g/dL (2.2-4.2); Glucose 97 mg/dL (74-106); High Density Lipoprotein 48 mg/dL; Potassium 3.9 mmol/L (3.5-5.1); Protein, Total 7.5 g/dL (6.4-8.2); Sodium Level 139 mmol/L (136-145); Thyroid Stim Hormone (TSH) 1.67 uIU/mL (0.358-3.74); Triglycerides 75 mg/dL; Very Low Density Lipoprotein 15 mg/dL (5-40)
[2021-04-09 15:38] LABS: Absolute Lymphocyte Count 2.61 X10^3/uL (0.83-4.51); Basophil# 0.06 X10^3/uL; Basophil% 0.8 % (0-1); Eosinophil# 0.13 X10^3/uL; Eosinophils% 1.8 % (0-5); Hematocrit 41.1 % (37-47); Hemoglobin 13.6 g/dL (12.0-15.0); Lymphocyte # 2.61 X10^3/ul (0.83-4.51); Lymphocyte % 35.5 % (19-41); Mean Corp Hgb Conc 33.1 g/dL (32-36); Mean Corpuscular Volume 90.5 fL (81-99); Mean Platelet Vol. 12.9 fl (6.2-12.0); Monocyte# 0.53 X10^3/uL; Monocyte% 7.2 % (0-10); NRBC Flagged by Analyzer 0 % (0-5); Neutrophil # 4.01 X10^3/uL (2.7-7.7); Neutrophil % 54.4 % (47-70); Platelet Count 236 K/mm3 (150-450); RBC Distribution Width CV 13.1 % (11.6-14.6); RBC Distribution Width SD 43.1 fl (35.1-43.9); Red Blood Count 4.54 M/mm3 (4.2-5.4); White Blood Count 7.4 K/mm3 (4.4-11.0)
== END ==
PROVIDERS: PCP Internal Medicine; Referring Provider Internal Medicine; Visit Provider Internal Medicine
DX: E03.9 Hypothyroidism, unspecified (principal); R00.2 Palpitations; E66.01 Morbid (severe) obesity due to excess calories; Z68.42 Body mass index [BMI] 45.0-49.9, adult
CPT/HCPCS: 36415; 80053; 80061; 83036; 84443; 85025

== ENCOUNTER → 2025-03-01 | Outpatient (CLI) | payer BC, SELFPAY ==
[2025-03-01 11:20] LABS: Hematocrit 41.5 % (37-47); Hemoglobin 14.0 g/dL (12.0-15.0); Mean Corp Hgb Conc 33.7 g/dL (32-36); Mean Corpuscular Volume 90.8 fL (81-99); Mean Platelet Vol. 12.1 fl (6.2-12.0); Platelet Count 266 K/mm3 (150-450); RBC Distribution Width CV 12.8 % (11.6-14.6); RBC Distribution Width SD 42.6 fl (35.1-43.9); Red Blood Count 4.57 M/mm3 (4.2-5.4); White Blood Count 9.8 K/mm3 (4.4-11.0)
[2025-03-01 12:36] LABS: AST(SGOT) 24 U/L (<=31); Alanine Aminotransfer ALT/SGPT 18 U/L (<=34); Albumin, Serum 4.7 g/dL (3.5-5.0); Alkaline Phosphatase 59 U/L (35-104); Anion Gap 12 (5-15); BUN 16 mg/dL (4-19); BUN/Creat Ratio 22.4 RATIO (10-20); Calcium,Total 9.3 mg/dL (7.6-11.0); Carbon Dioxide 24.9 mmol/L (21.0-32.0); Chloride 102 mmol/L (98-108); Cholesterol 197 mg/dL (<=200); Free T3 2.6 pg/mL (2.18-3.98); Globulin 2.9 g/dL (2.2-4.2); Glucose 98 mg/dL (70-99); Low Density Lipoprotein Calc. 132 mg/dL; Potassium 3.7 mmol/L (3.3-5.1); Triglycerides 69 mg/dL; Very Low Density Lipoprotein 14 mg/dL (5-40); Vitamin B12 576 pg/mL (180-914); Vitamin D,25 Hydroxy 50.0 ng/mL (30-100); cholesterol:hdl ratio screen 3.73
[2025-03-02 14:09] LABS: H. PYLORI STOOL AG Negative (Negative)
[2025-03-04 09:08] LABS: Egg, Whole <0.10 kU/L (Class 0); Mussels <0.10 kU/L (Class 0)
== END | disposition home or self-care (01) ==
LOC: LAB 10:39
PROVIDERS: PCP Internal Medicine; Referring Provider Student in an Organized Health Care Education/Training Program; Visit Provider Student in an Organized Health Care Education/Training Program
DX: R14.0 Abdominal distension (gaseous) (principal); R10.84 Generalized abdominal pain; E53.8 Deficiency of other specified B group vitamins; R73.9 Hyperglycemia, unspecified; E55.9 Vitamin D deficiency, unspecified; E03.8 Other specified hypothyroidism; E78.5 Hyperlipidemia, unspecified; R74.8 Abnormal levels of other serum enzymes
CPT/HCPCS: 36415; 80053; 80061; 82085; 82306; 82607; 83036; 84439; 84443; 84481; 85027; 86003; 86005; 87338